=== PATIENT | male | born 1965 | race Caucasian/White ===

== ENCOUNTER → 2021-06-26 | Day surgery (SDC) | payer OTHER ==
[~2021-06-26] VITALS: Ht 175.3 cm; Wt 115.7 kg
[~2021-06-26] MED LIST: ATENOLOL50 MG PO; CLARITIN10 MG PO; HCTZ25 MG PO; HYDRALAZINE25 MG PO
== END | disposition home or self-care (01) ==
LOC: FAS 10:34
DX: L72.3 Sebaceous cyst (principal); I10 Essential (primary) hypertension; Z88.6 Allergy status to analgesic agent; Z79.899 Other long term (current) drug therapy